=== PATIENT | male | born 1970 | race Caucasian/White ===

== ENCOUNTER 2016-11-26 15:58 | Emergency (ER) | payer OTHER ==
[~2016-11-26] VITALS: Ht 175.3 cm; Wt 77.9 kg
[~2016-11-26 15:58] MED LIST: ALBUAER19 INH; PRLSR20 PO
[2016-11-26 16:03] VITALS: TEMP 36.6; Ht 175.3 cm; Wt 77.9 kg
[2016-11-26] MEDS ORDERED: SODIUM CHLORIDE 0.9% 1000ML 1,000 ML IV STA (16:18)
[2016-11-26] MEDS ORDERED: MECLIZINE HCL 25 MG TAB PO STA ×2 (16:18→20:24)
[2016-11-26] MEDS ORDERED: PRVHFAIN INH (16:41)
[2016-11-26] MEDS ORDERED: ADVIN10/60 INH (16:41)
--- NOTE | 2016-11-26 16:50 | DIAGNOSTIC IMAGING REPORT ---
CHEST ONE VIEW PORTABLE CLINICAL HISTORY: Weakness. Shortness of breath. COMPARISON STUDY: Chest radiograph June 24, 2012. FINDINGS: Lung volumes are normal. No pneumothorax or pleural effusion is present. Pulmonary vascularity is normal. Cardiomediastinal silhouette is normal. The appearance of the chest is unchanged. IMPRESSION: No acute cardiopulmonary findings. Electronically signed by: Albino Oreilly M.D. 11/26/2016 4:48 PM Dictated Date/Time: 11/26/2016 4:48 PM
[2016-11-26 16:53] LABS: BASO % 0.5 %; BASO ABS # 0.03 K/uL (0-0.2); COMPLETE YES; EOS % 3.1 %; IG% 0.2 %; LYMPH % 34.5 %; LYMPH ABS # 1.92 K/uL (1.2-3.4); MEAN CELL VOLUME 85.7 fL (80-100); MEAN CORPUSCULAR HEMOGLOBIN 29.7 pg (25-34); MEAN CORPUSCULAR HGB CONC 34.6 g/dl (32-36); MEAN PLATELET VOLUME 9.8 fL (7.4-10.4); MONO % 9.4 %; NEUT % 52.3 %; PLATELET COUNT 281 K/uL (130-400); RED BLOOD COUNT 4.55 M/uL (4.7-6.1); WHITE BLOOD COUNT 5.56 K/uL (4.8-10.8)
[2016-11-26 17:03] LABS: INR 1.1 (0.9-1.1); PARTIAL THROMBOPLASTIN RATIO 1.1; PROTHROMBIN TIME (PATIENT) 11.3 SECONDS (9.0-12.0)
[2016-11-26 17:15] LABS: ALT/SGPT 23 U/L (12-78); AST/SGOT 14 U/L (15-37); BLOOD UREA NITROGEN 16 mg/dl (7-18); BUN/CREATININE RATIO 14.9 (10-20); CALCIUM 8.7 mg/dl (8.5-10.1); CARBON DIOXIDE 26 mmol/L (21-32); CHLORIDE 108 mmol/L (98-107); GLUCOSE 95 mg/dl (70-99); POTASSIUM 3.4 mmol/L (3.5-5.1); SODIUM 142 mmol/L (136-145)
[2016-11-26 17:26] LABS: ALKALINE PHOSPHATASE 63 U/L (45-117); THYROID STIMULATING HORMONE 0.793 uIu/ml (0.300-4.500)
--- NOTE | 2016-11-26 17:27 | DIAGNOSTIC IMAGING REPORT ---
HEAD WITHOUT CONTRAST (CT) CLINICAL HISTORY: 46 years-old Male presenting with EVALUATE WEAKNESS. TECHNIQUE: Multidetector CT imaging of the head was performed without the use of intravenous contrast. IV contrast: None. A dose lowering technique was used consistent with the principles of ALARA (as low as reasonably achievable). COMPARISON: 10/28/2010. CT DOSE (mGy.cm): The estimated cumulative dose is 638.56 mGycm. FINDINGS: Milling Planer Operator topogram: Unremarkable. Ventricles and sulci normal in size. Brain parenchyma normal in appearance with preserved palmer-white differentiation. No mass effect or midline shift. No hemorrhage or acute territorial infarct. No extra-axial fluid collection. Paranasal sinuses and mastoid air cells clear. Calvarium intact. IMPRESSION: 1. No acute intracranial pathology. Electronically signed by: Reggie Balderas M.D. 11/26/2016 5:26 PM Dictated Date/Time: 11/26/2016 5:24 PM
[2016-11-26] MEDS ORDERED: LORAZEPAM 2 MG/ML 1 ML VIAL IV STA (18:09)
[2016-11-26 18:41] LABS: MANUAL MICROSCOPIC REQUIRED? NO; REVIEW REQ? NO; URINE APPEARANCE CLEAR (CLEAR); URINE BILIRUBIN NEG (NEG); URINE COLOR YELLOW; URINE NITRITE NEG (NEG); URINE PH 7.5 (4.5-7.5); URINE SPECIFIC GRAVITY 1.018 (1.000-1.030); UROBILINOGEN NEG (NEG)
--- NOTE | 2016-11-26 20:47 | DIAGNOSTIC IMAGING REPORT ---
BRAIN WITHOUT CONTRAST CLINICAL HISTORY: 46 years-old Male presenting with dizzy . TECHNIQUE: Multisequence, multiplanar MR imaging of the brain was performed without the use of intravenous contrast. IV contrast: None. COMPARISON: CT head performed earlier the same day. FINDINGS: Ventricles and sulci normal in size. Single focus of T2/FLAIR hyperintensity in the subcortical white matter of the right frontal lobe, likely age-related. Brain parenchyma otherwise normal in appearance with preserved palmer-white differentiation. No mass effect or midline shift. No restricted diffusion to suggest acute ischemia. No hemorrhage. No extra-axial fluid collection. T2 skull base flow voids preserved. Bone marrow signal intensity within the calvarium within normal limits. IMPRESSION: 1. No acute intracranial abnormality. Electronically signed by: Reggie Balderas M.D. 11/26/2016 8:46 PM Dictated Date/Time: 11/26/2016 8:42 PM
[2016-11-26] MEDS ORDERED: MECL1CHW4 PO (21:15)
[2016-11-26 21:24] VITALS: BP 129/89; PULSE 71; O2SAT 98
--- NOTE | 2016-11-26 22:26 | EMERGENCY ROOM VISIT NOTE ---
History Report prepared by Edmundo: Doug Fisher Under the Supervision of: Dr. Fadi Coronado D.O. First contact with patient: 16:09 Chief Complaint: SHORTNESS OF BREATH Stated Complaint: SOB, DIZZY Nursing Triage Summary: Dizziness and short of breath since yesterday, worse today. States he picked up a 40-lb bucket of water and felt something pop in the center of his chest. History of Present Illness The patient is a 46 year old male who presents to the Emergency Room with complaints of shortness of breath that began today. Yesterday while the patient was at work, he picked up a 5 gallon bucket of water and felt a "pop" in his mid sternum. He denies any chest pain at that time or currently. After this happened, he began to be lightheaded throughout the day. Last night, he felt relatively normal, however, he got worse this morning. He became short of breath , dizzy, and lightheaded. His dizziness is describes as spinning with lightheadedness. Dizziness is significant improvement with lying down but worsens with changes in positions. His shortness of breath is constant, but his dizziness is exacerbated with standing/moving. He is better with rest. He denies any ringing in his ears, changes in his vision, chest pain, weakness, or numbness in arms or legs. He has a past medical history of asthma, but no other medical problems. He does not smoke cigarettes. Patient denies any diabetes, HTN , HLD, previous strokes, or heart disease. No early family history of stroke. Source of History: patient Onset: today Position: other (Respiratory System) Symptom Intensity: moderate Quality: other (Shortness of breath) Timing: constant Associated Symptoms: No headache, No neck pain, No chest pain, No weakness, No numbness Note: He is dizzy and lightheaded. Review of Systems See HPI for pertinent positives & negatives. A total of 10 systems reviewed and were otherwise negative. Past Medical & Surgical Medical Problems: (1) Asthma (2) GERD (gastroesophageal reflux disease) Surgical Problems: (1) S/P lumbar spinal fusion Family History Patient reports no known family medical history. Social History Smoking Status: Never Smoker Smokeless Tobacco Use: No Alcohol Use: none Drug Use: none Marital Status: Housing Status: lives with family Occupation Status: employed Current/Historical Medications Scheduled PRN Albuterol (Ventolin Hfa), 2 PUFFS INH Q4H PRN for Cough/SOB/Wheezing Fluticasone Prop/Salmeterol (Advair Diskus 100/50 60 Dose), 1 PUFF INH BID PRN for SOB/Wheezing Meclizine Hcl (Meclizine Hcl), 25 MG PO TID PRN for Dizziness or Vertigo Omeprazole (Prilosec), 20 MG PO DAILY PRN for Acid Reflux Allergies Coded Allergies: No Known Allergies (Verified , 01/14/16) Physical Exam Vital Signs Date Time Temp Pulse Resp B/P (MAP) Pulse Ox O2 Delivery O2 Flow Rate FiO2 11/26/16 21:24 71 16 129/89 98 11/26/16 18:22 75 16 118/77 96 Room Air 11/26/16 16:50 74 16 129/84 88 111/93 86 118/90 11/26/16 16:42 78 11/26/16 16:36 Room Air 11/26/16 16:06 96 Room Air 11/26/16 16:03 36.6 89 18 131/91 96 Room Air Physical Exam GENERAL: Sitting up in bed, alert, disheveled appearing, well nourished, no distress, non-toxic EYE EXAM: normal conjunctiva, PERRL and EOM's intact, Mild nystagmus when gazing to the right. OROPHARYNX: no exudate, no erythema, lips, buccal mucosa, and tongue normal and mucous membranes are moist NECK: supple, no nuchal rigidity, no adenopathy, non-tender LUNGS: Clear to auscultation. Normal chest wall mechanics HEART: no murmurs, S1 normal and S2 normal ABDOMEN: abdomen soft, non-tender, normo-active bowel sounds, no masses, no rebound or guarding. BACK: Back is symmetrical on inspection and there is no deformity, no midline tenderness, no CVA tenderness. SKIN: no rashes and no bruising UPPER EXTREMITIES: upper extremities are grossly normal. LOWER EXTREMITIES: No pitting edema. NEURO EXAM: Normal sensorium, cranial nerves II-XII intact, normal speech, no weakness of arms, no weakness of legs. No drift. Finger to nose intact. Gross sensation intact. Rapid alternating movements of bilateral UE's. Medical Decision & Procedures ER Provider Diagnostic Interpretation: Radiology results as stated below per my review and the radiologist's interpretation: HEAD WITHOUT CONTRAST (CT) CLINICAL HISTORY: 46 years-old Male presenting with EVALUATE WEAKNESS. TECHNIQUE: Multidetector CT imaging of the head was performed without the use of intravenous contrast. IV contrast: None. A dose lowering technique was used consistent with the principles of ALARA (as low as reasonably achievable). COMPARISON: 10/28/2010. CT DOSE (mGy.cm): The estimated cumulative dose is 638.56 mGycm. FINDINGS: Plant Guard topogram: Unremarkable. Ventricles and sulci normal in size. Brain parenchyma normal in appearance with preserved palmer-white differentiation. No mass effect or midline shift. No hemorrhage or acute territorial infarct. No extra-axial fluid collection. Paranasal sinuses and mastoid air cells clear. Calvarium intact. IMPRESSION: 1. No acute intracranial pathology. Electronically signed by: Reggie Balderas M.D. 11/26/2016 5:26 PM Dictated Date/Time: 11/26/2016 5:24 PM CHEST ONE VIEW PORTABLE CLINICAL HISTORY: Weakness. Shortness of breath. COMPARISON STUDY: Chest radiograph June 24, 2012. FINDINGS: Lung volumes are normal. No pneumothorax or pleural effusion is present. Pulmonary vascularity is normal. Cardiomediastinal silhouette is normal. The appearance of the chest is unchanged. IMPRESSION: No acute cardiopulmonary findings. Electronically signed by: Albino Oreilly M.D. 11/26/2016 4:48 PM Dictated Date/Time: 11/26/2016 4:48 PM BRAIN WITHOUT CONTRAST CLINICAL HISTORY: 46 years-old Male presenting with dizzy . TECHNIQUE: Multisequence, multiplanar MR imaging of the brain was performed without the use of intravenous contrast. IV contrast: None. COMPARISON: CT head performed earlier the same day. FINDINGS: Ventricles and sulci normal in size. Single focus of T2/FLAIR hyperintensity in the subcortical white matter of the right frontal lobe, likely age-related. Brain parenchyma otherwise normal in appearance with preserved palmer-white differentiation. No mass effect or midline shift. No restricted diffusion to suggest acute ischemia. No hemorrhage. No extra-axial fluid collection. T2 skull base flow voids preserved. Bone marrow signal intensity within the calvarium within normal limits. IMPRESSION: 1. No acute intracranial abnormality. Electronically signed by: Reggie Balderas M.D. 11/26/2016 8:46 PM Dictated Date/Time: 11/26/2016 8:42 PM Laboratory Results 11/26/16 16:40 Red Blood Count 4.55, Mean Corpuscular Volume 85.7, Mean Corpuscular Hemoglobin 29.7, Mean Corpuscular Hemoglobin Concent 34.6, Mean Platelet Volume 9.8, Neutrophils (%) (Auto) 52.3, Lymphocytes (%) (Auto) 34.5, Monocytes (%) (Auto) 9.4, Eosinophils (%) (Auto) 3.1, Basophils (%) (Auto) 0.5, Neutrophils # (Auto) 2.91, Lymphocytes # (Auto) 1.92, Monocytes # (Auto) 0.52, Eosinophils # (Auto) 0.17, Basophils # (Auto) 0.03 11/26/16 16:40 Test 11/26/16 16:40 11/26/16 18:00 White Blood Count 5.56 K/uL (4.8-10.8) Red Blood Count 4.55 M/uL (4.7-6.1) Hemoglobin 13.5 g/dL (14.0-18.0) Hematocrit 39.0 % (42-52) Mean Corpuscular Volume 85.7 fL (80-100) Mean Corpuscular Hemoglobin 29.7 pg (25-34) Mean Corpuscular Hemoglobin Concent 34.6 g/dl (32-36) Platelet Count 281 K/uL (130-400) Mean Platelet Volume 9.8 fL (7.4-10.4) Neutrophils (%) (Auto) 52.3 % Lymphocytes (%) (Auto) 34.5 % Monocytes (%) (Auto) 9.4 % Eosinophils (%) (Auto) 3.1 % Basophils (%) (Auto) 0.5 % Neutrophils # (Auto) 2.91 K/uL (1.4-6.5) Lymphocytes # (Auto) 1.92 K/uL (1.2-3.4) Monocytes # (Auto) 0.52 K/uL (0.11-0.59) Eosinophils # (Auto) 0.17 K/uL (0-0.5) Basophils # (Auto) 0.03 K/uL (0-0.2) RDW Standard Deviation 39.8 fL (36.4-46.3) RDW Coefficient of Variation 12.6 % (11.5-14.5) Immature Granulocyte % (Auto) 0.2 % Immature Granulocyte # (Auto) 0.01 K/uL (0.00-0.02) Prothrombin Time 11.3 SECONDS (9.0-12.0) Prothromb Time International Ratio 1.1 (0.9-1.1) Activated Partial Thromboplast Time 28.8 SECONDS (21.0-31.0) Partial Thromboplastin Ratio 1.1 D-Dimer < 190 ug/L FEU (0-500) Anion Gap 8.0 mmol/L (3-11) Est Creatinine Clear Calc Drug Dose 85.7 ml/min Estimated GFR () 94.1 Estimated GFR (Non- 81.2 BUN/Creatinine Ratio 14.9 (10-20) Calcium Level 8.7 mg/dl (8.5-10.1) Total Bilirubin 0.6 mg/dl (0.2-1) Direct Bilirubin 0.1 mg/dl (0-0.2) Aspartate Amino Transf (AST/SGOT) 14 U/L (15-37) Alanine Aminotransferase (ALT/SGPT) 23 U/L (12-78) Alkaline Phosphatase 63 U/L (45-117) Troponin I < 0.015 ng/ml (0-0.045) Total Protein 7.0 gm/dl (6.4-8.2) Albumin 4.0 gm/dl (3.4-5.0) Thyroid Stimulating Hormone (TSH) 0.793 uIu/ml (0.300-4.500) Urine Color YELLOW Urine Appearance CLEAR (CLEAR) Urine pH 7.5 (4.5-7.5) Urine Specific [place] 1.018 (1.000-1.030) Urine Protein NEG (NEG) Urine Glucose (UA) NEG (NEG) Urine Ketones NEG (NEG) Urine Occult Blood NEG (NEG) Urine Nitrite NEG (NEG) Urine Bilirubin NEG (NEG) Urine Urobilinogen NEG (NEG) Urine Leukocyte Esterase NEG (NEG) Laboratory results per my review. Medications Administered Medications (Trade) Dose Ordered Sig/Cheryle Route Start Time Stop Time Status Last Admin Dose Admin Sodium Chloride 1,000 ml @ 999 mls/hr Q1H1M STAT IV 11/26/16 16:18 11/26/16 17:18 DC 11/26/16 16:50 999 MLS/HR Meclizine HCl (Antivert Tab) 25 mg NOW STAT PO 11/26/16 16:18 11/26/16 16:20 DC 11/26/16 16:49 25 MG Lorazepam (Ativan Inj) 0.5 mg NOW STAT IV 11/26/16 18:09 11/26/16 18:10 DC 11/26/16 18:20 0.5 MG ECG Indication: SOB/dyspnea Rate (beats per minute): 81 Rhythm: normal sinus Findings: no acute ischemic change, no ectopy, other (Normal intervals, normal axis) ED Course ED COURSE: Vital signs were reviewed and showed normal vitals. The patients medical record was reviewed The above diagnostic studies were performed and reviewed. ED treatments and interventions as stated above. 160: The patient was evaluated in room A11. A complete history and physical examination was performed. 1617: Ordered Antivert Tab 25 mg PO, Sodium Chloride 1000 ml @ 999 mls/hr IV 1808: The patient is feeling okay as long as he is sitting. He is still having positional dizziness. Ordered Ativan Inj 0.5 mg IV 2023: The patient is currently in MRI. 2110: He feels slightly better. He is still having some dizziness with position but would like to go home. I offered further evaluation but he declined. 2117: Upon reevaluation, the patient is resting. I discussed my findings with the patient and he understands and agrees with the treatment plan. Based on the patients age, coexisting illnesses, exam and lab findings the decision to treat as an outpatient was made. The patient remained stable while under my care. The patient appeared well at the time of discharge. Medical Decision Differential diagnosis includes etiologies such as benign positional vertigo, dehydration, hypovolemia, anemia, tumor, infection, hypoglycemia, electrolyte abnormalities, cardiac sources, intracerebral event, toxicologic, neurologic, as well as others were entertained. Patient is a 46-year-old male who presents to ER following lifting a 5 count bucket of water yesterday feeling a midsternal pot. Following this he has been short of breath. He denies any chest pain. He also admits to dizziness. Dizziness is worsened with movement i.e. twisting turning and bending. No stroke history or risk factors. Patient is completely neurologically intact on exam. Symptoms are worsened when changing positions. Labs were unremarkable with the exception of mild hypokalemia. Troponin was negative with shortness of breath greater than 8 hours. D-dimer negative. Chest x-ray unremarkable. CT head was negative. Patient was given Antivert and fluids with little improvement. Ativan. Symptoms significantly worse. MRI was performed and was unremarkable. Patient again was neurologically intact. Offered observation but he declined. 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 Do favor like a peripheral vertigo with his age, risk factors and negative MRI. EKG was unremarkable as well. Discussed with Pt concerning signs and symptoms to watch out for. Pt was instructed to follow up with their PCP and discussed with the patient their option to return to the ED at anytime for persistent or worsening symptoms. The appropriate anticipatory guidance and out-patient management, including indications for return to the emergency department, were explained at length to the patient and understood. Medication Reconcilliation Current Medication List: was personally reviewed by me Blood Pressure Screening Patient's blood pressure: Normal blood pressure Blood pressure disposition: Did not require urgent referral Impression Primary Impression: Vertigo Scribe Attestation The scribe's documentation has been prepared under my direction and personally reviewed by me in its entirety. I confirm that the note above accurately reflects all work, treatment, procedures, and medical decision making performed by me. Departure Information Dispostion Home / Self-Care Prescriptions Meclizine Hcl (MECLIZINE HCL) 25 Mg Chw 25 MG PO TID Y for Dizziness or Vertigo, #30 Prov: Fadi Coronado, 11/26/16 Referrals Ricardo Amaya M.D. (PCP) Forms HOME CARE DOCUMENTATION FORM, IMPORTANT VISIT INFORMATION Patient Instructions ED [facility] Vertigo, [facility] Additional Instructions Please follow up with your primary care doctor with in the next 24 hours. Any worsening of your symptoms, please return to the ED immediately. This includes any fevers greater than 100.4, worsening pain, chest pain, shortness breath, persistent nausea, weakness or numbness in the arms or legs, inability to ambulate, vomiting, unable to eat or drink, or any other concerning signs or symptoms from your standpoint. Please do not drive until her symptoms completely resolved. Take Antivert and follow-up with PCP. Please return to the ER if anything changes or worsens.
== END 2016-11-26 20:20 | disposition home or self-care (01) ==
LOC: C.EDB 15:59 → C.EDA 20:20
DX: R42 Dizziness and giddiness (principal); J45.909 Unspecified asthma, uncomplicated; K21.9 Gastro-esophageal reflux disease without esophagitis; Z98.1 Arthrodesis status

== ENCOUNTER 2023-03-21 16:56 | Inpatient (IN) ==
--- NOTE | 2023-03-21 17:52 | Emergency Department Note ---
Impression & Plan Lumbar disc herniation with radiculopathy, Severe back pain ED Provider Note Name: CASEY SOMERS Age: 53 Sex: Male Arrives Via: Walk-In Informant: Patient ED Provider: Jamie Palomino MD Chief Complaint: Back pain Impression: As per impressions above Medical Decision Making: Pleasant 53-year-old gentleman with history of lumbar disc disease and to previous surgeries the most recent about 3 years ago. He arrives for evaluation of severe worsening of low back pain now rating down his left leg. He started to get paresthesias and numbness in the left leg. He is not having any loss of bowel or bladder control. He is not having fevers or concerns for epidural abscess. Patient did just have an MRI a few weeks ago which shows a large disc herniation. I see his back this is the cause of his pain. Patient is requiring large amounts of IV narcotics to keep comfortable. Given this I do not think it is possible to send him home. He was given some IV steroids as well. At this point patient does not require emergent surgery based on examination though with no improvement in pain on steroids said and may require spinal evaluation. Patient and are both comfortable with plan for hospitalization Triage/Nursing Notes reviewed by Me Differential:Musculoskeletal, disc herniation, fracture, metastatic disease, cord compression, discitis, sciatica, cauda equina, infection, aortic disease, renal colic, gastrointestinal, as well as other pathologies. Vital Signs: reviewed and remarkable for no significant abnormalities Interventions: Dilaudid 1 mg IV x 3, Decadron 10 mg IV Labs:ED labs Reviewed by me and remarkable for no significant abnormalities Imaging:I reviewed MRI imaging from March 05, 2023 which showed 9 mm disc bulge at L3-L4 Consults:Dr Mariela Navas Hospitalist Plan: Disposition:Hospitalization. Condition: Good History of Present Illness: 53-year-old male arrives for evaluation of back pain. Patient with 2 previous spinal surgeries most recently about 3 years ago. He notes that he been doing well up until the last few weeks and started getting some low back pain. At times rating down left leg. He had an MRI of his lumbar spine ordered and obtained about 2 weeks ago. This revealed a disc bulge at L3-L4. Since then though pain has rapidly worsened and his pain has gotten out of control. Taking Tylenol Motrin and gabapentin at home without any improvement. States pain radiates down the left leg. He is having numbness and tingling in the left leg. He is not having loss of bowel or bladder control. He is not having any fevers, chills, abdominal pain, chest pain, shortness of breath, nausea, vomiting, leg swelling, other concerning signs or symptoms. He states this is similar to previous back issues but much more severe. He is to the point where he is unable to ambulate due to the severe pain and is just been laying around the last few days. Past Medical History:Asthma and back issues Home Medications:Gabapentin Allergies:No known drug allergy Vitals:Blood Pressure: 116/79, Pulse 89, RR 26, T 36.8C, O2 99% on RA Physical Exam: GENERAL: Patient is very uncomfortable appearing and in moderate distress. RESPIRATORY: No dyspnea. Clear to auscultation and equal bilaterally. CARDIOVASCULAR: Regular rate and rhythm.No murmur appreciated. GASTROINTESTINAL: Abdomen soft, non-tender, no peritonitis. BACK: No midline tenderness, no CVA tenderness EXTREMITIES: Normal motion all extremities, no cyanosis, no edema. NEUROLOGIC: Alert and oriented. No focal neurologic deficits appreciated. He notes decreased sensation throughout the lateral side of the left upper leg. SKIN: No rash, no jaundice, no diaphoresis. PSYCH: Appropriate GCS: 15 ED Course: Times/Reassessments: Patient's pain eventually controlled to the point where he can lay in bed but even trying to sit up he has recurrence of significant discomfort Jamie Palomino MD Past Med/Surg History Medical History (Updated 03/22/23 @ 02:04 by Jamie Palomino MD) Fusion of lumbar spine Chronic lumbar pain Surgical History (Updated 03/19/23 @ 08:31 by Alda Patrick PA-C) History of lumbar laminectomy L4-L5 laminectomy 2019 History of back surgery L5-S1 fusion 2015 Social History Smoking Status: Never smoker Hx Alcohol Use: Yes Alcohol type: beer and hard liquor Hx Substance Use: No Preferred Language: Citizen Of [place] Communication Ability: Effective Slab Polisher Required: No Beliefs That Will Affect Care: None marital status: Current Living Situation: Spouse Current Living Situation Comment: lives in 1 story home with current occupational status: employed Other Information That Helps Us Care for You: No Feels Safe at Home: Yes Safety Concerns: Feels Safe At This Time Assistive Devices: None Allergies Allergies Allergy/AdvReac Type Severity Reaction Status Date / Time No Known Allergies Allergy Mild Verified 03/21/23 18:53 Home Meds Home Medications Medication Instructions Recorded Confirmed albuterol sulfate 90 mcg/actuation 2 puff inhalation QID PRN asthma 11/26/16 03/21/23 aerosol inhaler (Ventolin HFA) ##0 fluticasone furoate 100 1 inh inhalation QAM PRN NEEDED 04/11/19 03/21/23 mcg-vilanterol 25 mcg/dose PER PT inhalation powder (Breo Ellipta) acetaminophen 500 mg tablet 1,000 mg PO Q6H PRN Pain 03/19/23 03/21/23 (Tylenol Extra Strength) ibuprofen 200 mg tablet 800 mg PO Q6H PRN Pain 03/21/23 03/21/23 Previous Rx's Medication Instructions Recorded gabapentin 300 mg capsule 300 mg PO .COMPLEX #90 caps 03/19/23 Results & Data (ED) Vital Signs Vital Signs - 24 hr 03/21/23 17:06 03/21/23 17:31 03/21/23 17:37 Temperature 36.8 C Temperature Source Temporal Artery Scan Pulse Rate 102 H 89 Pulse Rate [Apical] 87 Respiratory Rate 18 26 H Respiratory Effort / Characteristics Non-Labored Spontaneous Respiratory Depth Normal Respiratory Pattern Tachypnea Blood Pressure [Left Arm] 116/79 Blood Pressure Mean [Left Arm] 91 Pulse Oximetry 91 99 Oxygen Delivery Method Room Air Room Air Sepsis Recent Fever Within 48 Hours No Sepsis New/Unexplained Change in Mental Status No Sepsis Action Taken by Nursing No Action Required Laboratory Data 03/21/23 17:29 03/21/23 17:29 Lab Results 03/21/23 Range/Units 17:29 WBC 5.98 (4.8-10.8) K/ul RBC 4.66 L (4.70-6.10) M/uL Hgb 14.1 (14.0-18.0) g/dl Hct 40.5 L (42.0-52.0) % MCV 86.9 (80.0-100.0) fL MCH 30.3 (25.0-34.0) pg MCHC 34.8 (32.0-36.0) g/dL RDW Std Deviation 39.5 (36.4-46.3) fL RDW Coeff of Héctor 12.5 (11.5-14.5) % Plt Count 363 (130-400) K/uL MPV 10.0 (9.4-12.4) fL Immature Gran % (Auto) 0.2 % Neut % (Auto) 60.1 % Lymph % (Auto) 23.7 % [place] % (Auto) 9.2 % Eos % (Auto) 6.0 % Baso % (Auto) 0.8 % Neut # (Auto) 3.59 (1.40-6.50) K/uL Lymph # (Auto) 1.42 (1.20-3.40) K/uL [place] # (Auto) 0.55 (0.11-0.59) K/uL Eos # (Auto) 0.36 (0.00-0.50) K/uL Baso # (Auto) 0.05 (0.00-0.20) K/uL Immature Gran # (Auto) 0.01 (0.01-0.20) K/uL Sodium 139 (136-145) mmol/L Potassium 3.8 (3.5-5.1) mmol/L Chloride 108 H (98-107) mmol/L Carbon Dioxide 22 (21-32) mmol/L Anion Gap 9 (3-11) BUN 16 (6-23) mg/dl Creatinine 1.00 (0.6-1.4) mg/dl Est Cr Clr Drug Dosing 92.3 ml/min Est GFR ( Amer) 100.6 ml/min Est GFR (Non-Af Amer) 86.8 ml/min BUN/Creatinine Ratio 16.0 (10-20) Glucose 124 H (70-99(Fasting)) mg/dl Calcium 9.0 (8.6-10.3) mg/dl Administered Medications Calcium Carbonate (Calcium Carbonate 500 Mg Chewable Tab) 500 mg PO BID PRN PRN Reason: Heartburn Stop: 04/20/23 23:05 Last Admin: 03/21/23 23:21 Dose: 500 mg Documented By: WELLINGTON Hydromorphone HCl (Hydromorphone Inj 0.5 Mg/0.5 Ml Syr) 0.5 mg IV Q3H PRN PRN Reason: Severe Pain (Scale 7, 8, 9,10) Stop: 04/04/23 21:39 Last Admin: 03/22/23 01:11 Dose: 0.5 mg Documented By: Admin: 03/21/23 21:57 Dose: 0.5 mg Documented By: WELLINGTON Oxycodone HCl (Oxycodone Hcl Ir 5 Mg Tab (Immediate Release)) 5 mg PO Q4H PRN PRN Reason: Mod-Sev Pain (Scale 4-10) Stop: 04/04/23 21:39 Last Admin: 03/21/23 23:01 Dose: 5 mg Documented By: WELLINGTON Discontinued Medications Dexamethasone Sodium Phosphate (DexamethasonePf 10 Mg/Ml Vial) 10 mg IV NOW ONE Stop: 03/21/23 17:50 Last Admin: 03/21/23 17:56 Dose: 10 mg Documented By: ANGIE Hydromorphone HCl (Hydromorphone Inj 1 Mg/Ml Syringe) 1 mg IV NOW STA Stop: 03/21/23 17:50 Last Admin: 03/21/23 17:56 Dose: 1 mg Documented By: ANGIE Hydromorphone HCl (Hydromorphone Inj 1 Mg/Ml Syringe) 1 mg IV NOW STA Stop: 03/21/23 18:28 Last Admin: 03/21/23 18:30 Dose: 1 mg Documented By: ANGIE Hydromorphone HCl (Hydromorphone Inj 1 Mg/Ml Syringe) 1 mg IV NOW STA Stop: 03/21/23 19:22 Last Admin: 03/21/23 19:32 Dose: 1 mg Documented By: LATASHA Ketorolac Tromethamine (Ketorolac Tromethamine 15 Mg/Ml Vial) 15 mg IV NOW STA Stop: 03/21/23 19:22 Last Admin: 03/21/23 19:32 Dose: 15 mg Documented By: LATASHA Discharge Plan Visit Data Chief Complaint: Back Injury/Pain Stated Complaint: BACK/LT HIP PAIN ED Provider: Jamie Palomino Discharge Problem: Lumbar disc herniation with radiculopathy, Severe back pain Patient Disposition: Admitted As Inpatient Discharge Instructions Interventions: ED Discharge Assessment Last Done: 03/21/23 21:35
[2023-03-21] MEDS: dexAMETHasone**PF** 10 MG/ML VIAL IV ONE (17:56)
[2023-03-21] MEDS: HYDROmorphone INJ 1 MG/ML SYRINGE IV STA ×3 (17:56→19:32)
[2023-03-21 18:04] LABS: Basophils # (auto) 0.05 K/uL (0.00-0.20); Basophils % (auto) 0.8 %; Eosinophils # (auto) 0.36 K/uL (0.00-0.50); Hematocrit (blood only) 40.5 % (42.0-52.0); Hemoglobin 14.1 g/dl (14.0-18.0); Immature Granulocytes # (auto) 0.01 K/uL (0.01-0.20); Immature Granulocytes % (auto) 0.2 %; Lymphocytes # (auto) 1.42 K/uL (1.20-3.40); Lymphocytes % (auto) 23.7 %; Mean Corpuscular Hemoglobin 30.3 pg (25.0-34.0); Mean Corpuscular Hgb Conc 34.8 g/dL (32.0-36.0); Mean Corpuscular Volume 86.9 fL (80.0-100.0); Monocytes # (auto) 0.55 K/uL (0.11-0.59); Monocytes % (auto) 9.2 %; Neutrophils # (auto) 3.59 K/uL (1.40-6.50); Neutrophils % (auto) 60.1 %; Platelet Count 363 K/uL (130-400); RDW Coefficient of Variation 12.5 % (11.5-14.5); RDW Standard Deviation 39.5 fL (36.4-46.3); Red Blood Count 4.66 M/uL (4.70-6.10); White Blood Count 5.98 K/ul (4.8-10.8)
[2023-03-21 18:11] LABS: Creatinine Clr Calc Pharmacy 92.3 ml/min; Est GFR (African American) 100.6 ml/min; Est GFR (Non-African American) 86.8 ml/min; Potassium 3.8 mmol/L (3.5-5.1)
[2023-03-21] MEDS: KETOROLAC TROMETHAMINE 15 MG/ML VIAL IV STA (19:32)
--- NOTE | 2023-03-21 20:08 | History & Physical Report ---
Date of Service March 21, 2023 Assessment & Plan (1) Severe back pain: Plan: 53-year-old male past medical history significant for allergic rhinitis, mild persistent asthma, GERD, degeneration of lumbosacral disc, lumbosacral spondylosis, thoracic and lumbosacral neuritis, presents with severe back pain which got worse last 2 days. Also having some tingling in the left lower extremity. He followed with pain management and was referred to spine surgery. Currently pain is severe in the lower back radiating to the left leg. And having difficulty ambulating. No loss of bowel or bladder control. Sensations intact in lower extremity. Denies any fevers. Denies any chest pain or shortness of breath. No headache or neck pain. Vision is okay. No runny nose or sore throat or cough. No nausea. Currently hemodynamically stable. Severe back pain Lumbar Spine MRI 03/05/23: . There is an inferiorly extruded 9 mm disc fragment eccentric to the left at L3-L4. This impinges on the transiting nerve roots. 2. Postoperative change, degenerative disc disease, and mild spondylosis at additional levels as above. See discussion for detailed level by level analysis. 3. No destructive bony process is seen. Pain control received Decadron consult ortho spine in am Asthma' home inhalers DVT px scds for now. If no procedure planned will place on Lovenox. Full code Medical floor History of Present Illness Chief Complaint: Severe back pain Primary Care Provider: Ricardo Amaya MD 53-year-old male past medical history significant for allergic rhinitis, mild persistent asthma, GERD, degeneration of lumbosacral disc, lumbosacral spondylosis, thoracic and lumbosacral neuritis, presents with severe back pain which got worse last 2 days. Also having some tingling in the left lower extremity. He followed with pain management and was referred to spine surgery. Currently pain is severe in the lower back radiating to the left leg. And having difficulty ambulating. No loss of bowel or bladder control. Sensations intact in lower extremity. Denies any fevers. Denies any chest pain or shortness of breath. No headache or neck pain. Vision is okay. No runny nose or sore throat or cough. No nausea. Currently hemodynamically stable. Past medical history. As mentioned above Past surgical history. Excision of soft tissue tumor back. Left knee arthroscopy. Lumbar discectomy. Right ankle compound fracture with plate/screws. Repair of inguinal hernia. Repair of knee ligament. Vasectomy. Social history. . Chews tobacco. No alcohol use. No drug use. Family history. Maternal grandmother had diabetes. Heart disorder. Hypertension. And cancer of pancreas. Maternal grandfather had heart disorder, hypertension and lung cancer Allergies Allergy/AdvReac Type Severity Reaction Status Date / Time No Known Allergies Allergy Mild Verified 03/21/23 18:53 Home Medications Medication Instructions Recorded Confirmed Type albuterol sulfate 90 mcg/actuation 2 puff inhalation QID PRN asthma 11/26/16 03/21/23 History aerosol inhaler (Ventolin HFA) ##0 fluticasone furoate 100 1 inh inhalation QAM PRN NEEDED 04/11/19 03/21/23 History mcg-vilanterol 25 mcg/dose PER PT inhalation powder (Breo Ellipta) acetaminophen 500 mg tablet 1,000 mg PO Q6H PRN Pain 03/19/23 03/21/23 History (Tylenol Extra Strength) gabapentin 300 mg capsule 300 mg PO .COMPLEX #90 caps 03/19/23 03/21/23 Rx ibuprofen 200 mg tablet 800 mg PO Q6H PRN Pain 03/21/23 03/21/23 History Past Med/Surg History Medical History (Updated 03/22/23 @ 02:04 by Jamie Palomino MD) Fusion of lumbar spine Chronic lumbar pain Surgical History (Updated 03/19/23 @ 08:31 by Alda Patrick PA-C) History of lumbar laminectomy L4-L5 laminectomy 2019 History of back surgery L5-S1 fusion 2015 Social History Smoking Status: Never smoker Hx Alcohol Use: Yes Alcohol type: beer and hard liquor Hx Substance Use: No Preferred Language: [place]ian Communication Ability: Effective Hand Candy Cutter Required: No Beliefs That Will Affect Care: None marital status: Current Living Situation: Spouse Current Living Situation Comment: lives in 1 story home with current occupational status: employed Other Information That Helps Us Care for You: No Feels Safe at Home: Yes Safety Concerns: Feels Safe At This Time Assistive Devices: None Review of Systems Review of Systems: All systems reviewed & are unremarkable except as noted in HPI & below Physical Exam Physical Exam: General-Not in acute distress Head- atraumatic Eyes- PERRL. ENT- oropharynx clear Lungs- clear to auscultation no wheezing or crackles Heart- regular rate and rhythm; no murmur, no gallop. Abdomen- normal bowel sounds, soft, nontender, no distension. Extremities- no pretibial edema, no erythema seen Neuro- alert, oriented x 3; PERRL no facial palsy; no dysarthria; moves extremities. Musculoskeletal No lumbar spine tenderness. Straight leg positive in left lower extremity. Results & Data Results & Data Vital Signs (Past 12 Hours) Vital Signs Temp Pulse Pulse Resp BP Pulse Ox O2 Del Method 03/21/23 17:37 89 03/21/23 17:31 87 26 H 116/79 99 Room Air 03/21/23 17:06 36.8 C 102 H 18 91 Room Air Diagnostic Findings Laboratory Results WBC 5.98 K/ul (4.8-10.8) 03/21/23 17: RBC 4.66 M/uL (4.70-6.10) L 03/21/23 17:29 Hgb 14.1 g/dl (14.0-18.0) 03/21/23 17:29 Hct 40.5 % (42.0-52.0) L 03/21/23 17:29 MCV 86.9 fL (80.0-100.0) 03/21/23 17:29 MCH 30.3 pg (25.0-34.0) 03/21/23 17: MCHC 34.8 g/dL (32.0-36.0) 03/21/23 17:29 RDW Std Deviation 39.5 fL (36.4-46.3) 03/21/23 17:29 RDW Coeff of Héctor 12.5 % (11.5-14.5) 03/21/23 17:29 Plt Count 363 K/uL (130-400) 03/21/23 17:29 MPV 10.0 fL (9.4-12.4) 03/21/23 17:29 Immature Gran % (Auto) 0.2 % 03/21/23 17:29 Neut % (Auto) 60.1 % 03/21/23 17:29 Lymph % (Auto) 23.7 % 03/21/23 17:29 [place] % (Auto) 9.2 % 03/21/23 17:29 Eos % (Auto) 6.0 % 03/21/23 17:29 Baso % (Auto) 0.8 % 03/21/23 17:29 Neut # (Auto) 3.59 K/uL (1.40-6.50) 03/21/23 17:29 Lymph # (Auto) 1.42 K/uL (1.20-3.40) 03/21/23 17:29 [place] # (Auto) 0.55 K/uL (0.11-0.59) 03/21/23 17:29 Eos # (Auto) 0.36 K/uL (0.00-0.50) 03/21/23 17:29 Baso # (Auto) 0.05 K/uL (0.00-0.20) 03/21/23 17: Immature Gran # (Auto) 0.01 K/uL (0.01-0.20) 03/21/23 17:29 Sodium 139 mmol/L (136-145) 03/21/23 17:29 Potassium 3.8 mmol/L (3.5-5.1) 03/21/23 17:29 Chloride 108 mmol/L (98-107) H 03/21/23 17: Carbon Dioxide 22 mmol/L (21-32) 03/21/23 17:29 Anion Gap 9 (3-11) 03/21/23 17:29 BUN 16 mg/dl (6-23) 03/21/23 17: Creatinine 1.00 mg/dl (0.6-1.4) 03/21/23 17:29 Est Cr Clr Drug Dosing 92.3 ml/min 03/21/23 17:29 Est GFR ( Amer) 100.6 ml/min 03/21/23 17:29 Est GFR (Non-Af Amer) 86.8 ml/min 03/21/23 17:29 BUN/Creatinine Ratio 16.0 (10-20) 03/21/23 17:29 Glucose 124 mg/dl (70-99(Fasting)) H 03/21/23 17:29 Calcium 9.0 mg/dl (8.6-10.3) 03/21/23 17:29 Code Status & VTE Plan VTE Prophylaxis Plan VTE Prophylaxis will be ordered: Yes
[2023-03-21] MEDS ORDERED: POLYETHYLENE (MIRALAX) 17 GM PACK PO PRN (21:40)
[2023-03-21] MEDS ORDERED: FLUTICASONE/VILANTEROL 100/25MCG 14 PUFFS/INHALER INH PRN (21:40)
[2023-03-21] MEDS ORDERED: ACETAMINOPHEN 325 MG TAB PO PRN (21:40)
[2023-03-21] MEDS ORDERED: ALBUTEROL HFA 8 GM INHALER INH PRN (21:40)
[2023-03-21] MEDS: HYDROmorphone INJ 0.5 MG/0.5 ML SYR IV PRN (21:57)
[2023-03-21] MEDS: oxyCODONE HCL IR 5 MG TAB (IMMEDIATE RELEASE) PO PRN (23:01)
[2023-03-21] MEDS: CALCIUM CARBONATE 500 MG CHEWABLE TAB PO PRN (23:21)
[2023-03-22 05:57] LABS: Hematocrit (blood only) 40.6 % (42.0-52.0); Hemoglobin 13.9 g/dl (14.0-18.0); Mean Corpuscular Hemoglobin 30.2 pg (25.0-34.0); Mean Corpuscular Hgb Conc 34.2 g/dL (32.0-36.0); Mean Corpuscular Volume 88.3 fL (80.0-100.0); Mean Platelet Volume 10.2 fL (9.4-12.4); Platelet Count 372 K/uL (130-400); RDW Coefficient of Variation 12.3 % (11.5-14.5); RDW Standard Deviation 39.5 fL (36.4-46.3); White Blood Count 7.65 K/ul (4.8-10.8)
[2023-03-22 06:11] LABS: Est GFR (African American) 115.8 ml/min; Potassium 4.3 mmol/L (3.5-5.1)
[2023-03-22 06:12] LABS: BUN Creatinine Ratio 18.4 (10-20); Calcium 9.6 mg/dl (8.6-10.3); Creatinine Clr Calc Pharmacy 104.9 ml/min; Est GFR (Non-African American) 99.9 ml/min
[2023-03-22 06:36] LABS: Immature Granulocytes # (auto) 0.01 K/uL (0.01-0.20); Immature Granulocytes % (auto) 0.1 %; Lymphocytes # (auto) 0.61 K/uL (1.20-3.40); Monocytes # (auto) 0.14 K/uL (0.11-0.59); Monocytes % (auto) 1.8 %; Neutrophils # (auto) 6.89 K/uL (1.40-6.50); Neutrophils % (auto) 90.1 %
[2023-03-22] MEDS ORDERED: DEXAMETHASONE SOD INJ 4 MG/ML VIAL IV STA (13:07)
[2023-03-22] MEDS: dexAMETHasone 6 MG in SYRINGE 0 ML IV STA (13:34)
[2023-03-22] MEDS: HYDROmorphone INJ 0.5 MG/0.5 ML SYR IV PRN (14:47)
--- NOTE | 2023-03-22 15:07 | Orthopedic Consultation ---
Date of Consultation March 22, 2023 Assessment & Plan (1) Lumbar disc herniation with radiculopathy: At this time a lengthy history of this patient with his reviewing his MRI findings and clinical presentation. Elect obtain standing x-rays lumbar spine as well as a consultation with physical therapy to thoroughly assess his strength deficits. We discussed continued medical management. He has already seen interventional pain management and is been told he is a poor candidate for any improvement. We may have to consider lumbar laminectomy L3-L4 on the left. History of Present Illness Reason for Consultation: Back and left leg pain Attending Physician: Dolores Crawford MD History of Present Illness This is a 53-year-old male that presents with severe left leg pain. Is been progressive for the past several days. Denies any specific trauma fall or event. Does have a history of previous back surgery involving fusion all 5 S1 as well as what sounds like a decompression L4-L5. He works full-time as a self-employed commercial construction superintendent. He describes pain rating into left buttock posterior thigh rating to the anterior thigh to the knee and below the knee to the foot. Markedly limits his ability to stand and ambulate. His right lower extremity is asymptomatic. Allergies Allergy/AdvReac Type Severity Reaction Status Date / Time No Known Allergies Allergy Mild Verified 03/21/23 18:53 Home Medications Medication Instructions Recorded Confirmed Type albuterol sulfate 90 mcg/actuation 2 puff inhalation QID PRN asthma 11/26/16 03/21/23 History aerosol inhaler (Ventolin HFA) ##0 fluticasone furoate 100 1 inh inhalation QAM PRN NEEDED 04/11/19 03/21/23 History mcg-vilanterol 25 mcg/dose PER PT inhalation powder (Breo Ellipta) acetaminophen 500 mg tablet 1,000 mg PO Q6H PRN Pain 03/19/23 03/21/23 History (Tylenol Extra Strength) gabapentin 300 mg capsule 300 mg PO .COMPLEX #90 caps 03/19/23 03/21/23 Rx ibuprofen 200 mg tablet 800 mg PO Q6H PRN Pain 03/21/23 03/21/23 History Patient History Medical History (Updated 03/22/23 @ 02:04 by Jamie Palomino MD) Fusion of lumbar spine Chronic lumbar pain Surgical History (Updated 03/19/23 @ 08:31 by Alda Patrick PA-C) History of lumbar laminectomy L4-L5 laminectomy 2019 History of back surgery L5-S1 fusion 2016 Social History Smoking Status: Never smoker Hx Alcohol Use: Yes Alcohol type: beer and hard liquor Hx Substance Use: No Preferred Language: Maori Communication Ability: Effective Personnel Psychologist Required: No Beliefs That Will Affect Care: None marital status: Current Living Situation: Spouse Current Living Situation Comment: lives in 1 story home with current occupational status: employed Feels Safe at Home: Yes Assistive Devices: None Physical Exam Physical Exam: On exam patient is sitting up at the bedside. He is in obvious distress. His is in the room with him. He exhibits severe tension signs straight leg raising on the left negative on the right. He has breakaway weakness to the l eft quadriceps plantarflexion dorsiflexion. On the right he has +5-5 plantarflexion dorsiflexion quadriceps. Sensory is diminished on the left compared to right. Low Results & Data Vital Signs (Past 12 Hours) Vital Signs Temp Pulse Resp BP Pulse Ox O2 Del Method 03/22/23 07:11 36.6 C 83 16 132/79 99 Room Air
--- NOTE | 2023-03-22 17:16 | XRay Report ---
XR lumbar spine 2-3V HISTORY: 53 years-old Male standing films chronic low back pain COMPARISON: MRI lumbar spine 03/05/2023 TECHNIQUE: 3 views of the lumbar spine FINDINGS: Laminectomy with discectomy, posterior interbody rods and screw fusion redemonstrated L5-S1. Chronic L2 and L3 compression deformities. Mild multilevel intervertebral disc space narrowing and spondyliti c spurring with moderate facet arthrosis. No acute fracture or subluxation. IMPRESSION: 1. No acute fracture or subluxation. 2. Chronic degenerative and postoperative changes as above. ACT 112: Negative or not required by law. The above report was generated using voice recognition software. It may contain grammatical, syntax o r spelling errors. Electronically signed by: Carlos Dunbar M.D. 03/22/2023 5:15 PM
--- NOTE | 2023-03-22 17:18 | Hospitalist Progress Note ---
Date of Service March 22, 2023 Assessment & Plan (1) Severe back pain: Plan: 53-year-old male past medical history significant for allergic rhinitis, mild persistent asthma, GERD, degeneration of lumbosacral disc, lumbosacral spondylosis, thoracic and lumbosacral neuritis, presents with severe back pain which got worse last 2 days. Also having some tingling in the left lower extremity. He followed with pain management and was referred to spine surgery. Currently pain is severe in the lower back radiating to the left leg. And having difficulty ambulating. No loss of bowel or bladder control. Sensations intact in lower extremity. Denies any fevers. Denies any chest pain or shortness of breath. No headache or neck pain. Vision is okay. No runny nose or sore throat or cough. No nausea. Currently hemodynamically stable. Severe back pain Lumbar Spine MRI 03/05/23: 1.There is an inferiorly extruded 9 mm disc fragment eccentric to the left at L3-L4. This impinges on the transiting nerve roots. 2. Postoperative change, degenerative disc disease, and mild spondylosis at additional levels as above. See discussion for detailed level by level analysis. 3. No destructive bony process is seen. No bladder and/or bowel problem Pain has been severe and going down to the left leg with cervical radiculopathy symptoms Appreciate orthospine input and recommendation Has been on Dilaudid 1 mg IV every 3 hourly as needed Will await recommendation from Ortho Asthma' home inhalers No acute symptoms DVT px scds for now. If no procedure planned will place on Lovenox. Full code Medical floor Admission and Anticipated Discharge Date Admission Date: March 21, 2023 Subjective 03/22/2023 The patient was seen and examined in medical floor He has been complaining of severe left-sided lower back pain with radiation up to the left foot Pain has been worse since admission and he cannot ambulate with this much pain He denies any problem with urine or bowel habit He has been waiting to be seen by the spinal surgeon Review of Systems Review of Systems: All systems reviewed and are unremarkable except as noted below Physical Exam Physical Exam: Lying in bed with acute distress due to pain Constitutional: well developed, well nourished, + ill appearing and + obese Eyes: PERRL, conjunctivae normal, anicteric sclerae ENMT: external ear and nose normal, oropharynx normal Neck: trachea midline, no thyromegaly Respiratory: no respiratory distress Auscultation: lungs clear to auscultation bilaterally Cardiovascular: Rate/Rhythm: regular rate and regular rhythm; not tachycardic Heart Sounds: normal S1 and normal S2; no murmur Extremities: no edema Gastrointestinal (Abdomen): Inspection/Auscultation: normal bowel sounds; abdomen not distended Percussion/Palpation: abdomen soft; abdomen nontender Musculoskeletal: Localized tenderness at lower lumbar spine on the left side. Straight leg on the left side is limited to about 30 degrees with impaired sensation Neurologic: Alert,awake and oriented x 3 Lymphatic: no cervical or axillary lymphadenopathy Results & Data Results & Data Vital Signs (Past 12 Hours) Vital Signs Temp Pulse Resp BP BP Pulse Ox O2 Del Method 03/22/23 15:11 36.9 C 97 H 16 137/87 95 Room Air 03/22/23 07:11 36.6 C 83 16 132/79 99 Room Air Laboratory Results Short CBC 03/21/23 03/22/23 Range/Units 17:29 05:18 WBC 5.98 7.65 (4.8-10.8) K/ul Hgb 14.1 13.9 L (14.0-18.0) g/dl Hct 40.5 L 40.6 L (42.0-52.0) % Plt Count 363 372 (130-400) K/uL [facility] 03/21/23 03/22/23 17:29 05:18 Sodium 139 136 Potassium 3.8 4.3 Chloride 108 H 103 Carbon Dioxide 22 26 BUN 16 16 Creatinine 1.00 0.87 Glucose 124 H 143 H Calcium 9.0 9.6 Medications Administered Current Inpatient Medications Acetaminophen (Acetaminophen 325 Mg Tab) 650 mg PO Q4H PRN PRN Reason: pain/fever Stop: 04/20/23 21:39 Albuterol (Albuterol Hfa 8 Gm Inhaler) 2 puffs INH QID PRN PRN Reason: asthma Stop: 04/20/23 21:39 Calcium Carbonate (Calcium Carbonate 500 Mg Chewable Tab) 500 mg PO BID PRN PRN Reason: Heartburn Stop: 04/20/23 23:05 Last Admin: 03/21/23 23:21 Dose: 500 mg Fluticasone/Vilanterol (Fluticasone/Vilanterol 100/25mcg 14 Puffs/Inhaler) 1 puffs INH QAM PRN PRN Reason: NEEDED PER PT Stop: 04/20/23 21:39 Gabapentin (Gabapentin 300 Mg Cap) 300 mg PO HS [facility] Stop: 03/23/23 21:01 Gabapentin (Gabapentin 300 Mg Cap) 300 mg PO BID [facility] Stop: 03/26/23 21:01 Gabapentin (Gabapentin 300 Mg Cap) 300 mg PO TID [facility] Stop: 04/26/23 08:59 Hydromorphone HCl (Hydromorphone Inj 0.5 Mg/0.5 Ml Syr) 1 mg IV Q3H PRN PRN Reason: Severe Pain (Scale 7, 8, 9,10) Stop: 04/04/23 21:39 Last Admin: 03/22/23 14:47 Dose: 1 mg Oxycodone HCl (Oxycodone Hcl Ir 5 Mg Tab (Immediate Release)) 5 mg PO Q4H PRN PRN Reason: Mod-Sev Pain (Scale 4-10) Stop: 04/04/23 21:39 Last Admin: 03/22/23 12:54 Dose: 5 mg Polyethylene Glycol (Polyethylene (Miralax) 17 Gm Pack) 17 gm PO DAILY PRN PRN Reason: Constipation Stop: 04/20/23 21:39
[2023-03-22] MEDS: GABAPENTIN 300 MG CAP PO SCH (21:05)
[2023-03-23] MEDS ORDERED: SUGAMMADEX SODIUM 200 MG/2 ML VIAL IV ONE (11:04)
[2023-03-23] MEDS ORDERED: ONDANSETRON INJ 2 MG/ML 2 ML VIAL ONE (11:04)
[2023-03-23] MEDS ORDERED: PROPOFOL IV EMULSION 10 MG/ML 20 ML VIAL IV ONE (11:04)
[2023-03-23] MEDS ORDERED: MIDAZOLAM HCL 1 MG/ML 2ML VIAL ONE (11:04)
[2023-03-23] MEDS ORDERED: ROCURONIUM BROMIDE 10 MG/ML 5 ML VIAL IV ONE (11:04)
[2023-03-23] MEDS ORDERED: DEXAMETHASONE SOD INJ 4 MG/ML VIAL ONE (11:04)
[2023-03-23] MEDS ORDERED: LIDOCAINE 2% 2 ML VIAL/AMP(20MG/ML) INFIL ONE ×2 (11:04→11:05)
[2023-03-23] MEDS ORDERED: fentaNYL citrate PF 100 MCG/2 ML VIAL ONE (11:04)
[2023-03-23] MEDS ORDERED: ATROPINE SULFATE 0.1 MG/ML 10ML SYR IV PRN (12:38)
[2023-03-23] MEDS ORDERED: HYDROmorphone INJ 2 MG/ML SYR/VIAL IV PRN (12:38)
[2023-03-23] MEDS ORDERED: ONDANSETRON INJ 2 MG/ML 2 ML VIAL IV PRN ×2 (12:38→15:15)
[2023-03-23] MEDS ORDERED: fentaNYL citrate PF 100 MCG/2 ML VIAL IV PRN (12:38)
[2023-03-23] MEDS ORDERED: ePHEDrine sulfate 50 MG/ML AMP IV PRN (12:38)
[2023-03-23] MEDS: HYDROmorphone INJ 0.5 MG/0.5 ML SYR IV STA (12:41)
--- NOTE | 2023-03-23 12:41 | Anesthesiology Consultation ---
Date of Service March 23, 2023 Assessment & Plan Chart Review Chart Review: Acceptable Risk for Surgery and Patient NOT seen in Pre Admission Testing Consults Requested none ASA ASA2 Proposed Anesthesia Anesthesia Type: General Risk / Benefits Reviewed With: PT / POA / Parent / Guardian, Accepts Plan and Informed Consent Obtained History Surgery Operation Date: 03/23/23 08:50 Proposed Procedures p Left L3-L4 Lumbar Laminectomy - Star Walls, Height/Weight Height: 5 ft 7 in Weight: 85.417 kg Allergies Allergy/AdvReac Type Severity Reaction Status Date / Time No Known Allergies Allergy Mild Verified 03/21/23 18:53 Medications Home Medications Medication Instructions Recorded Confirmed Last Taken albuterol sulfate 90 mcg/actuation 2 puff inhalation QID PRN asthma 11/26/16 03/21/23 Unknown aerosol inhaler (Ventolin HFA) ##0 fluticasone furoate 100 1 inh inhalation QAM PRN NEEDED 04/11/19 03/21/23 10/01/19 mcg-vilanterol 25 mcg/dose PER PT inhalation powder (Breo Ellipta) acetaminophen 500 mg tablet 1,000 mg PO Q6H PRN Pain 03/19/23 03/21/23 Unknown (Tylenol Extra Strength) gabapentin 300 mg capsule 300 mg PO .COMPLEX #90 caps 03/19/23 03/21/23 03/21/23 ibuprofen 200 mg tablet 800 mg PO Q6H PRN Pain 03/21/23 03/21/23 Unknown Active Medications Generic Name Dose Route Start Last Admin Trade Name Freq PRN Reason Stop Dose Admin Calcium Carbonate 500 mg 03/21/23 23:06 03/22/23 21:05 Calcium Carbonate 500 Mg Chewable Tab PO 04/20/23 23:05 500 mg BID PRN Administration Heartburn Gabapentin 300 mg 03/22/23 21:00 03/22/23 21:05 Gabapentin 300 Mg Cap PO 03/23/23 21:01 300 mg HS NICOLE Administration Hydromorphone HCl 1 mg 03/22/23 12:29 03/23/23 09:27 Hydromorphone Inj 0.5 Mg/0.5 Ml Syr IV 04/04/23 21:39 1 mg Q3H PRN Administration Severe Pain (Scale 7, 8, 9,10) Hydromorphone HCl 0.5 mg 03/23/23 12:37 03/23/23 12:41 Hydromorphone Inj 0.5 Mg/0.5 Ml Syr IV 03/23/23 12:38 0.5 mg NOW STA Administration Oxycodone HCl 5 mg 03/21/23 21:40 03/22/23 23:25 Oxycodone Hcl Ir 5 Mg Tab (Immediate Release) PO 04/04/23 21:39 5 mg Q4H PRN Administration Mod-Sev Pain (Scale 4-10) NPO Date Last Intake of Fluids: 03/22/23 Time Last Intake of Fluids: 21:00 Date Last Intake of Solids: 03/22/23 Time Last Intake of Solids: 21:00 Past Medical History Medical History Fusion of lumbar spine Chronic lumbar pain Past Surgical History Surgical History History of lumbar laminectomy L4-L5 laminectomy 2020 History of back surgery L5-S1 fusion 2015 Past Anesthesia History No Hx of Anesthesia Complications and No Family Hx of Anesthesia Complications Social History Smoking Status: Never smoker Hx Alcohol Use: Yes Alcohol type: beer and hard liquor alcohol intake frequency: holidays/special occasions only Hx Substance Use: No Review of Systems ROS Unobtainable: All systems reviewed & are unremarkable except as noted in HPI & below Physical Exam Vital Signs Last Vital Signs Temp 36.7 C 03/23/23 07:49 Pulse 100 H 03/23/23 07:49 Resp 18 03/23/23 07:49 BP 166/99 H 03/23/23 07:49 Pulse Ox 96 03/23/23 07:49 O2 Del Method Room Air 03/23/23 07:49 Constitutional + acute distress ENMT Mouth: no TMJ abnormality Thyromental Distance: > or= 3.5 Finger Breadths Mallampati Class: III Neck normal visual inspection, trachea midline and + facial hair; neck extension not limited Respiratory normal respiratory effort Auscultation: lungs clear to auscultation bilaterally Cardiovascular Rate/Rhythm: regular rate and regular rhythm Heart Sounds: no murmur Musculoskeletal Spine: normal cervical ROM Extremities: full ROM of extremities Neurologic moves all extremities Psychiatric Orientation: alert and oriented x 3 Testing Laboratory Results 03/22/23 05:18 03/22/23 05:18
--- NOTE | 2023-03-23 12:46 | History & Physical Bridge Note ---
Date of Service March 23, 2023 History & Physical Bridge Note I have examined the patient, reviewed the History & Physical and in the interval since the performance of the History & Physical I have noted the following changes of clinical significance: Patient continues to exhibit severe pain secondary to radiculopathy. He is requiring narcotic medications to control his symptoms. He exhibits weakness to the left lower extremity. In light of his clinical presentation I am recommending emergent laminectomy L3-L4. Should allow him to have some pain relief and hopefully return of function.
--- NOTE | 2023-03-23 12:52 | History & Physical Bridge Note ---
Date of Service March 23, 2023 History & Physical Bridge Note I have examined the patient, reviewed the History & Physical and in the interval since the performance of the History & Physical I have noted the following changes of clinical significance: no changes noted L3-L4 laminectomy on the left
[2023-03-23] MEDS: ceFAZolin 2,000 MG/15 ML IV PUSH IV ONE (13:08)
[2023-03-23] MEDS: BUPIVACAINE/EPINEPHRINE 0.5% MPF 1:200,000 30 ML VIAL ONE (13:39)
[2023-03-23] MEDS: ceFAZolin 330 MG/ML 1 GM VIAL ONE (13:39)
[2023-03-23] MEDS: ceFAZolin 2000MG 2,000 MG/15 ML SYR IV ONE (13:48)
--- NOTE | 2023-03-23 14:13 | Operative Report ---
Post Operative Report Pre & Post Diagnosis Operation Date: 03/23/23 08:50 Pre-Op Diagnosis: Lumbar disc herniation L3-L4 on the left with radiculopathy Post-Op Diagnosis: Same I identified the patient and participated in the time-out.: Yes Procedure Operation Date: 03/23/23 08:50 Actual Procedures L3-L4 laminectomy on the left with excision of herniated free fragment Surgeon Star Walls DO Healthcare Economics Manager Rosalind Castañeda Estimated Blood Loss 25 Findings Consistent with Post-Op Diagnosis Specimens None Indications This is a 53-year-old male presents with severe lumbar radiculopathy inability ambulate requiring IV narcotic pain medication to control his pain is here for emergent laminectomy and decompression. Description of Procedure Patient was met with identified informed consent obtained. Patient was then taken to the operative suite after undergoing and the patient placed in a prone position on the Tarun table top the Gurjit frame. All bony prominences well- padded eyes inspected to ensure no external pressure placed upon the. This point lumbar spine was prepped and draped in a sterile fashion. The assistance of fluoroscopy identify the L3-L4 disc space and midline incision was created overlying this region. Sharp dissection with the assistance of Bovie cautery to form down to and exposing the interlaminar space on the left. Is obtained retractors placed. Then performed a small laminectomy on the left with excision of the lateral ligamentum flavum and the medial aspect of the facet to expose a severely compressed traversing L4 nerve root. Was able to mobilize it medially and addressed several loose fragments of disc material. There was explored se veral times to ensure all fragments addressed then copiously irrigated and closed with subcutaneous Vicryl and 4 Monocryl for final skin closure. Steri- Strips sterile dressing placed. Patient waken taken to PACU stable condition. Please note Rosalind Castañeda was present at the entire surgery and while the patient positioning complex portion of the surgery and final skin closure. I attest to the content of the Intraoperative Record and any orders documented therein. Any exceptions are noted below.
[2023-03-23] MEDS: FLOSEAL HEMOSTATIC MATRIX 10ML TOP ONE (14:30)
--- NOTE | 2023-03-23 14:52 | Hospitalist Progress Note ---
Date of Service March 23, 2023 Assessment & Plan (1) Severe back pain: Plan: 53-year-old male past medical history significant for allergic rhinitis, mild persistent asthma, GERD, degeneration of lumbosacral disc, lumbosacral spondylosis, thoracic and lumbosacral neuritis, presents with severe back pain which got worse last 2 days. Also having some tingling in the left lower extremity. He followed with pain management and was referred to spine surgery. Currently pain is severe in the lower back radiating to the left leg. And having difficulty ambulating. No loss of bowel or bladder control. Sensations intact in lower extremity. Denies any fevers. Denies any chest pain or shortness of breath. No headache or neck pain. Vision is okay. No runny nose or sore throat or cough. No nausea. Currently hemodynamically stable. Severe lumbar spinal pain with radiculopathy-the scan is as below Lower lumbar right-sided back pain and goes down to the right leg mainly No urine or bowel Requiring more pain medications and Decadron Appreciate Ortho input and recommendation Will have spinal surgery today Lumbar Spine MRI 03/05/23: 1.There is an inferiorly extruded 9 mm disc fragment eccentric to the left at L3-L4. This impinges on the transiting nerve roots. 2. Postoperative change, degenerative disc disease, and mild spondylosis at additional levels as above. See discussion for detailed level by level analysis. 3. No destructive bony process is seen. No bladder and/or bowel problem Pain has been severe and going down to the left leg with cervical radiculopathy symptoms Asthma' home inhalers No acute symptoms No wheezing and no shortness of breath at rest DVT px scds for now. If no procedure planned will place on Lovenox. DVT prophylaxis as per Ortho Full code Medical floor Admission and Anticipated Discharge Date Admission Date: March 21, 2023 Subjective 03/22/2023 The patient was seen and examined in medical floor He has been complaining of severe left-sided lower back pain with radiation up to the left foot Pain has been worse since admission and he cannot ambulate with this much pain He denies any problem with urine or bowel habit He has been waiting to be seen by the spinal surgeon 03/23/2019 He has been complaining of pain at the back with radiation as before The pain seems to be reasonably controlled with medication He will have surgery this afternoon Review of Systems Review of Systems: All systems reviewed and are unremarkable except as noted below Physical Exam Physical Exam: Lying in bed with acute distress due to pain Constitutional: well developed, well nourished, + ill appearing and + obese Eyes: PERRL, conjunctivae normal, anicteric sclerae ENMT: external ear and nose normal, oropharynx normal Neck: trachea midline, no thyromegaly Respiratory: no respiratory distress Auscultation: lungs clear to auscultation bilaterally Cardiovascular: Rate/Rhythm: regular rate and regular rhythm; not tachycardic Heart Sounds: normal S1 and normal S2; no murmur Extremities: no edema Gastrointestinal (Abdomen): Inspection/Auscultation: normal bowel sounds; abdomen not distended Percussion/Palpation: abdomen soft; abdomen nontender Lymphatic: no cervical or axillary lymphadenopathy Results & Data Results & Data Vital Signs (Past 12 Hours) Vital Signs Temp Pulse Pulse Resp BP Pulse Ox O2 Del Method 03/23/23 12:53 63 16 138/92 97 Nasal Cannula 03/23/23 07:49 36.7 C 100 H 18 166/99 H 96 Room Air O2 Flow Rate 03/23/23 12:53 2 03/23/23 07:49 Medications Administered Current Inpatient Medications Acetaminophen (Acetaminophen 325 Mg Tab) 650 mg PO Q4H PRN PRN Reason: pain/fever Stop: 04/20/23 21:39 Albuterol (Albuterol Hfa 8 Gm Inhaler) 2 puffs INH QID PRN PRN Reason: asthma Stop: 04/20/23 21:39 Atropine Sulfate (Atropine Sulfate 0.1 Mg/Ml 10ml Syr) 0.5 mg IV Q1M PRN PRN Reason: PACU Use-HR<40 &/or Bradycardi Stop: 03/23/23 20:39 Calcium Carbonate (Calcium Carbonate 500 Mg Chewable Tab) 500 mg PO BID PRN PRN Reason: Heartburn Stop: 04/20/23 23:05 Last Admin: 03/22/23 21:05 Dose: 500 mg Ephedrine Sulfate (Ephedrine Sulfate 50 Mg/Ml Amp) 5 mg IV Q5M PRN PRN Reason: PACU Use Only-SBP<90 mmHg Stop: 03/23/23 20:39 Fentanyl Citrate (Fentanyl Citrate Pf 100 Mcg/2 Ml Vial) 25 mcg IV Q5M PRN PRN Reason: PACU Use Only-Pain Stop: 03/23/23 20:39 Fluticasone/Vilanterol (Fluticasone/Vilanterol 100/25mcg 14 Puffs/Inhaler) 1 puffs INH QAM PRN PRN Reason: NEEDED PER PT Stop: 04/20/23 21:39 Gabapentin (Gabapentin 300 Mg Cap) 300 mg PO HS [facility] Stop: 03/23/23 21:01 Last Admin: 03/22/23 21:05 Dose: 300 mg Gabapentin (Gabapentin 300 Mg Cap) 300 mg PO BID [facility] Stop: 03/26/23 21:01 Gabapentin (Gabapentin 300 Mg Cap) 300 mg PO TID [facility] Stop: 04/26/23 08:59 Hydromorphone HCl (Hydromorphone Inj 0.5 Mg/0.5 Ml Syr) 1 mg IV Q3H PRN PRN Reason: Severe Pain (Scale 7, 8, 9,10) Stop: 04/04/23 21:39 Last Admin: 03/23/23 09:27 Dose: 1 mg Hydromorphone HCl (Hydromorphone Inj 2 Mg/Ml Syr/Vial) 0.5 mg IV Q5M PRN PRN Reason: PACU Use Only-Pain Stop: 03/23/23 20:39 Ondansetron HCl (Ondansetron Inj 2 Mg/Ml 2 Ml Vial) 4 mg IV ONCE PRN PRN Reason: PACU Use Only-Nausea/Vomiting Stop: 03/23/23 20:39 Oxycodone HCl (Oxycodone Hcl Ir 5 Mg Tab (Immediate Release)) 5 mg PO Q4H PRN PRN Reason: Mod-Sev Pain (Scale 4-10) Stop: 04/04/23 21:39 Last Admin: 03/22/23 23:25 Dose: 5 mg Polyethylene Glycol (Polyethylene (Miralax) 17 Gm Pack) 17 gm PO DAILY PRN PRN Reason: Constipation Stop: 04/20/23 21:39
--- NOTE | 2023-03-23 15:07 | Fluoroscopy Report ---
FL spine 1V any level CLINICAL HISTORY: L3-L4 LAMI COMPARISON STUDY: None. FLUOROSCOPY TIME: 3 seconds FLUOROSCOPY IMAGES: 1 Ka,r: 1.7 mGy FINDINGS: There are surgical retractors/instruments posterior to the L4 vertebral body. IMPRESSION: Fluoroscopic assistance as above. ACT 112: Negative or not required by law. Electronically signed by: Broderick Sheikh M.D. 03/23/2023 3:05 PM
[2023-03-23] MEDS ORDERED: FAMOTIDINE 20 MG TAB PO PRN (15:15)
[2023-03-23] MEDS ORDERED: DO NOT ADMINISTER FLU VACCINE PRN (15:15)
[2023-03-23] MEDS ORDERED: ACETAMINOPHEN 500 MG TAB PO PRN (15:15)
[2023-03-23] MEDS ORDERED: ACETAMINOPHEN 1,000 MG/100 ML VIAL IV PRN (15:15)
[2023-03-23] MEDS ORDERED: traMADol HCL 50 MG TABLET PO PRN (15:15)
[2023-03-23] MEDS ORDERED: NALOXONE HCL 0.4 MG/1 ML VIAL/CARP IV PRN (15:15)
[2023-03-23] MEDS ORDERED: ONDANSETRON 4 MG OD TAB PO PRN (15:15)
[2023-03-23] MEDS ORDERED: LORazepam 0.5 MG in SYRINGE 0.25 ML IV PRN (15:15)
[2023-03-23] MEDS ORDERED: MAGNESIUM HYDROXIDE SUSP 30 ML UDC PO PRN (15:15)
[2023-03-23] MEDS ORDERED: HYDROmorphone INJ 1 MG/ML SYRINGE IV PRN (15:15)
[2023-03-23] MEDS ORDERED: DO NOT ADMINISTER PNEUMOCOCCAL VACCINE PRN (15:15)
[2023-03-23] MEDS ORDERED: bisacodyL 10 MG SUPP PR PRN (15:15)
[2023-03-23] MEDS ORDERED: ALUMINUM/MAGNESIUM SUSP 30 ML UDC PO PRN (15:15)
[2023-03-23] MEDS ORDERED: SOD PHOSPHATE/SOD BIPHOSPHATE ENEMA 132 ML BTL PR PRN (15:15)
[2023-03-23] MEDS ORDERED: hydrOXYzine HCl 25 MG TAB PO PRN (15:15)
[2023-03-23] MEDS ORDERED: HYDROmorphone INJ 0.5 MG/0.5 ML SYR IV PRN (15:15)
[2023-03-23] MEDS ORDERED: LORazepam 0.5 MG TAB PO PRN (15:15)
[2023-03-23] MEDS ORDERED: diphenhydrAMINE Capsule 25 MG CAP PO PRN (15:15)
[2023-03-23] MEDS ORDERED: PROMETHAZINE HCL 12.5 MG in SODIUM CHLORIDE 0.9% 50 ML IV PRN (15:15)
[2023-03-23] MEDS ORDERED: METOCLOPRAMIDE HCL INJ 5 MG/ML 2 ML VIAL IV PRN (15:15)
--- NOTE | 2023-03-23 15:35 | Anesthesiology Progress Note ---
Date of Service March 23, 2023 Anesthesia Post Procedure Vital Signs Vital Signs: Temp Pulse Pulse Pulse Resp BP BP 03/23/23 15:15 36.7 C 71 18 146/89 H 03/23/23 15:00 36.6 C 77 14 145/90 H 03/23/23 14:50 76 17 139/94 03/23/23 14:40 77 12 140/90 03/23/23 14:34 36.3 C L 78 18 135/95 03/23/23 12:53 63 16 138/92 03/23/23 07:49 36.7 C 100 H 18 166/99 H 03/22/23 21:10 03/22/23 19:57 36.8 C 95 H 16 136/82 Pulse Ox O2 Del Method O2 Flow Rate 03/23/23 15:15 95 Room Air 03/23/23 15:00 95 Room Air 03/23/23 14:50 92 Room Air 03/23/23 14:40 96 Room Air 03/23/23 14:34 98 Oxymask 6 03/23/23 12:53 97 Nasal Cannula 2 03/23/23 07:49 96 Room Air 03/22/23 21:10 Room Air 03/22/23 19:57 97 Room Air Pain Intensity Left Hip: Pain Intensity: 6 Transfer of Care Handoff Completed per policy Notes Mental Status: alert / awake / arousable Patient Amnestic to Procedure: Yes Nausea / Vomiting: adequately controlled Pain: adequately controlled Airway Patency, RR, SpO2: stable & adequate BP & HR: stable & adequate Hydration State: stable & adequate Anesthetic Complications: no major complications apparent and Pt Satisfied with anesthetic care
[2023-03-23] MEDS: LACTATED RINGER'S 1,000 ML IV SCH (17:22)
[2023-03-23] MEDS: DOCUSATE SODIUM/SENNA 50/8.6MG TAB PO SCH (20:54)
[2023-03-23] MEDS: ceFAZolin 2000MG 2,000 MG/15 ML SYR IV SCH (20:55)
[2023-03-24] MEDS: POLYETHYLENE (MIRALAX) 17 GM PACK PO SCH (05:00)
[2023-03-24] MEDS: GABAPENTIN 300 MG CAP PO SCH (08:34)
[2023-03-24] MEDS: dexAMETHasone 6 MG in SYRINGE 0 ML IV SCH (08:34)
[2023-03-24] MEDS: oxyCODONE HCL IR 5 MG TAB (IMMEDIATE RELEASE) PO PRN (09:29)
--- NOTE | 2023-03-24 14:42 | Orthopedic Progress Note ---
Date of Service March 24, 2023 Assessment & Plan (1) Lumbar disc herniation with radiculopathy: Plan: Patient is much improved from his laminectomy. From orthopedic standpoint he is safe to return home. Admission and Anticipated Discharge Date Admission Date: March 21, 2023 Subjective Back pain is controlled leg symptoms markedly improved Physical Exam Physical Exam: Patient is much more comfortable. Discussed during the testing left lower extremity. Results & Data Vital Signs (Past 12 Hours) Vital Signs Temp Pulse Resp BP Pulse Ox O2 Del Method 03/24/23 07:20 36.8 C 80 18 138/76 95 Room Air
[2023-03-27] MEDS ORDERED: GABAPENTIN 300 MG CAP PO SCH (09:00)
== END 2023-03-24 15:42 | disposition home or self-care (01) | DRG 520 ==
LOC: ED 16:56 → 3N 20:02 → SUATTDRO 20:02 → 3N 21:35